=== PATIENT | male | born 1930 | race Caucasian/White ===

== ENCOUNTER → 2016-09-14 | Outpatient (CLI) | payer OTHER, BC | LOC: GIMAGING 14:28 | PROVIDERS: ATTEND Internal Medicine | DX: J44.9 Chronic obstructive pulmonary disease, unspecified (principal) | CPT/HCPCS: 71020-PO ==

== ENCOUNTER → 2016-12-08 | Outpatient (CLI) | payer OTHER, BC | LOC: BHFA 10:45 | PROVIDERS: ATTEND Internal Medicine Interventional Cardiology | DX: Z82.49 Family history of ischemic heart disease and other diseases of the circulatory system (principal) ==

== ENCOUNTER → 2017-07-22 | Outpatient (CLI) | payer OTHER, BC | LOC: FIMAGING 12:50 | PROVIDERS: ATTEND Internal Medicine Hematology & Oncology | DX: N63.20 Unspecified lump in the left breast, unspecified quadrant (principal) ==

== ENCOUNTER → 2017-09-27 | Outpatient (CLI) | payer OTHER, BC | LOC: BHFA 08:30 | PROVIDERS: ATTEND Internal Medicine Interventional Cardiology | DX: Z01.810 Encounter for preprocedural cardiovascular examination (principal); R94.31 Abnormal electrocardiogram [ECG] [EKG] | CPT/HCPCS: 78452; 93017; A9500; J2785 ==

== ENCOUNTER 2017-09-28 15:11 | Outpatient (CLI) | payer OTHER, BC ==
[2017-09-28] MEDS ORDERED: ACETAMINOPHEN 325 MG TAB ONE (15:38)
[2017-09-28] MEDS ORDERED: ACETAMINOPHEN 325 MG TAB PO ONE (15:45)
== END 2017-09-28 18:46 | disposition home or self-care (01) ==
LOC: FOBOP 15:11
PROVIDERS: ATTEND Internal Medicine Hematology & Oncology
PROC: 30233R1 Transfusion of Nonautologous Platelets into Peripheral Vein, Percutaneous Approach (ICD-10-PCS; principal; 2017-09-28)
DX: C4A.9 Merkel cell carcinoma, unspecified (principal)
CPT/HCPCS: 36430; J1200

== ENCOUNTER → 2018-03-11 | Outpatient (CLI) | payer OTHER, BC | LOC: FIMAGING 11:25 | PROVIDERS: ATTEND Orthopaedic Surgery | DX: Z01.818 Encounter for other preprocedural examination (principal); M17.12 Unilateral primary osteoarthritis, left knee ==

== ENCOUNTER 2018-03-25 13:00 | Inpatient (IN) | payer OTHER, BC ==
--- NOTE | 2018-04-01 05:48 | PDHPUP ---
History & Physical Update H&P update statement: This history and physical update is based on an assessment of the patient which was completed after admission or registration (within 24 hours), but prior to the surgery/procedure. H&P update: H&P reviewed & patient examined, no change in patient's condition since H&P completed
[2018-04-01] MEDS ORDERED: TRANEXAMIC ACID 3,000 MG in NS (SYRINGE) 50 ML IRR ONE (06:00)
[2018-04-01] MEDS ORDERED: ROPIVACAINE 0.2% 80 MG, EPINEPHrine 0.2 MG, KETOROLAC TROMETHAMINE 30 MG in SYRINGE 0 ML IU ONE (06:00)
--- NOTE | 2018-04-01 07:15 | PDGENHP ---
History and Physical History and Physical: Last amended by Freida Burnham PA-C on 03/18/2018 at 3:10pm View Changes: Patient Name TWILA DU (87yo, M) ID# [id number] Appt. Date/Time 03/17/2018 09: 45AM 1929 Service Dept. MAIN OFFICE Provider FREIDA BURNHAM PA-C Insurance Med Primary: [place] ([place]ARE) Insurance # : [id number] Med Secondary: [place] Insurance # : [id number] Policy/Group # : [id number] Prescription: ESI1 - Member is eligible. details Chief Complaint Left CBB_discuss left knee surgery discuss L TKA Patient's Care Team Primary Care Provider: MATHEUS WHEELER MD: [address] [place] [address], , Other: YONG ARENAS ([facility]): [address] [address], , Orthopedic Surgeon: LORE BURNHAM M.D. Patient's Pharmacies [facility] #[id number] ([facility]): [address] [facility] [id number], , Vitals 03/17/2018 09:49 am Ht: 5 ft 6 in Wt: 160 lbs BMI: 25.8 BP: 110/89 sitting L arm 124/68 sitting L arm Pulse: 88 bpm Allergies Reviewed Allergies NKDA Medications Reviewed Medications celecoxib 200 mg capsule take 2 capsules the night before surgery with dinner then one tab once daily with food for 3 weeks 03/17/18 prescribed Freida Burnham PA-C Eylea 2 mg/0.05 mL intravitreal solution for injection Inject 2 mg by intraocular route. 03/17/18 entered [facility] Fish Oil 03/17/18 entered Dahlia Anguiano lansoprazole 30 mg capsule,delayed release Take 1 capsule(s) every day by oral route for 90 days. 11/28/17 filled [facility] meloxicam 7.5 mg tablet 01/03/18 filled [facility] vitamins Vaccines None recorded. Problems Reviewed Problems Osteoarthritis of knee Shoulder joint pain Knee pain Family History Reviewed Family History Father - Heart disease (onset age: 55) ( age: 84) Social History Reviewed Social History Smoking Status: Former smoker Smoker () (Notes: less than 1PPW when smoked) Tobacco-years of use: 30 Occupation: retired Has smoked since age: 19 (Notes: to 50's) Chewing tobacco: none Alcohol intake: Occasional Alcohol-years of use: 63 Caffeine intake: Moderate Illicit drugs: no Exercise level: Occasional Sporting activities: walk Hand Dominance: Right Education: 4 Year College Live alone or with others?: with others (Notes: ) Surgical History Reviewed Surgical History Orthopaedic Surgery - hand Orthopaedic Surgery - back x2 Knee arthroscopy/surgery - left x2, right x1 Total knee arthroplasty - 09/20/2017 Orthopaedic Surgery - 1998 - right shoulder Past Medical History Reviewed Past Medical History Arthritis: Y Cancer: Y - prostate & skin Elevated Cholesterol: Y GERD/Reflux: Y Prostate Disease: Y Rheumatoid Arthritis: Y Screening None recorded. [facility] knee [facility] Reported by patient. Location of symptoms: Left knee Symptoms: Pain; Decreased ROM Severity: severe Duration: many years Onset: chronic Exacerbated by: Walking; Physical activity; performs with symptoms Alleviated by: activity modifications; NSAIDs; PT/OT; cortisone injection; viscosupplement injection Associated Symptoms: no numbness; swelling Previous Surgery: surgical procedure: (scope x2) Prior studies: radiographs Previous Injections: did not help Previous PT: did not help Work Related: no Notes: here to discuss risks of surgery with thrombocytopenia ROS ROS as noted in the HPI Physical Exam Patient is an 87-year-old male. Constitutional: General Appearance: healthy-appearing, NAD, and normal body habitus. Gait and Station: Appearance: ambulates with no assitive devices and antalgic gait. Cardiovascular System: Arterial Pulses Left: dorsalis pedis normal and posterior tibialis normal. Edema Left: no edema. Varicosities Left: no varicosities and capillary refill test normal. Lymph Nodes: Inspection/Palpation Left: no popliteal LAD. Knees: Inspection Left: no induration, warmth, or erythema; swelling and genu varum deformity; and normal axial alignment. Bony Palpation Left: no tenderness of the medial femoral condyle or the adductor tubercle and tenderness of the lateral wall trochlear groove, the medial wall trochlear groove, the medial joint line, and the lateral joint line. Soft Tissue Palpation Left: no tenderness of the lateral patellar retinaculum, the medial patellar retinaculum , the prepatellar bursa, the patellar tendon, the fat pad, the medial collateral ligament, the pes anserinus, the saphenous nerve, the iliotibial tract, the lateral collateral ligament, the biceps femoris tendon, or the gastrocnemius and tenderness of the popliteal fossa. Active Range of Motion Left : crepitus, flexion (110 deg.), extension (5 deg.), and pain at extreme limits of range. Stability Left: no laxity, subluxation, or ligamentous instability and anterior drawer sign negative and posterior drawer sign negative. Strength Left: no hamstring weakness or quadriceps weakness and flexion 5/5 and extension 5/5. Skin: Left Lower Extremity: normal. Neurologic: Sensation on the Left: T12 normal, L1 normal, L2 normal, L3 normal, and L4 normal. Psychiatric: Orientation: oriented to time, place, and person. Mood and Affect: normal mood and affect and active and alert. Heart Rate And Rhythm (normal) heart rate and rhythm. Lungs respirations unlabored. Assessment / Plan Left knee OA Previous xrays were reviewed today reveal severe DJD Discussed operative and non-operative interventions for diagnosis of knee arthritis with patient. Recommend Left TKA for treatment. Discussed risks and benefits of operative intervention including but not limited to bleeding, infection, need for further surgery, blood clots, blood clots going to the lungs and rare perioperative complications including stroke, heart attack and . Patient understands risks and wishes to proceed. Informed consent was obtained today Postoperative medications were written today including ASA per Dr. Arenas for VTE prophylaxis postop. Left TKAscheduled CBC WNL except for PLT 66K, followed by Dr. Arenas received PCP letter Patient was given a hard copy of [facility] Beneficiary Notification Letter at today' s appointment. 1. Acute postoperative pain G89.18: Other acute postprocedural pain 2. Prophylactic anticoagulation given Z76.89: Persons encountering health services in other specified circumstances celecoxib 200 mg capsule - take 2 capsules the night before surgery with dinner then one tab once daily with food for 3 weeks Qty: 23 capsule(s) Refills : 0 Pharmacy: [facility] #[id number] Note to Pharmacy: no refills, patient must contact provider first 3. Osteoarthritis of left knee joint M17.12: Unilateral primary osteoarthritis, left knee Return to Office Lore Brunham M.D. for Surgery 75 at Surgery on 04/01/2018 at 01:15 PM Freida Burnham PA-C for Surgery 75 at Surgery on 04/01/2018 at 01:15 PM Freida Burnham PA-C for Post Op Visit at MAIN OFFICE on 04/21/2018 at 01:30 PM Lore Burnham M.D. for Post Op Visit at MAIN OFFICE on 05/05/2018 at 01 :30 PM Lore Burnham M.D. for Post Op Visit at MAIN OFFICE on 06/16/2018 at 01 :30 PM Amendment Sign-Off Encounter signed-off by Freida Burnham PA-C, 03/18/2018. Encounter performed and documented by Freida Burnham PA-C Encounter reviewed & signed by Freida Burnham PA-C on 03/17/2018 at 10:15am Amendment closed by Freida Burnham PA-C on 03/18/2018 at 3:10pm There is not enough information to calculate an E&M code
[2018-04-01] MEDS ORDERED: TRANEXAMIC ACID 3,000 MG/50 ML BAG IRR ONE (11:20)
[2018-04-01] MEDS ORDERED: FAMOTIDINE 20 MG TAB PO ONE (11:26)
[2018-04-01] MEDS ORDERED: DEXAMETHASONE 4 MG/ML VIAL IVP ONE (11:26)
[2018-04-01] MEDS ORDERED: ceFAZolin 2 GM/DEXTROSE 100 ML IV ONE (11:26)
[2018-04-01] MEDS ORDERED: ACETAMINOPHEN 325 MG TAB PO ONE (11:26)
[2018-04-01] MEDS ORDERED: LR 1,000 ML IV ONE (11:27)
--- NOTE | 2018-04-01 11:45 | PDANEPAE ---
ANE History of Present Illness left TKA ANE Past Medical History - Cardiovascular History Hx Hypertension: No Hx Arrhythmias: No Hx Chest Pain: No Hx Coronary Artery / Peripheral Vascular Disease: No Hx CHF / Valvular Disease: No Hx Palpitations: No Cardiovascular History Comment: HIGH CHOL - Pulmonary History Hx COPD: No Hx Asthma/Reactive Airway Disease: No Hx Recent Upper Respiratory Infection: No Hx Oxygen in Use at Home: No Hx Sleep Apnea: No Sleep Apnea Screening Result - Last Documented: Negative Pulmonary History Comment: KIMBERLI TRIGGERS - Neurologic History Hx Cerebrovascular Accident: No Hx Seizures: No Hx Dementia: No Neurologic History Comment: SPINAL STENOSIS. HX OF SPINAL SURGERY. RIGHT LEG NUMBNESS HX - Endocrine History Hx Diabetes: No Obesity: no - Renal History Hx Renal Disorders: No Renal History Comment: URINARY FREQUENCY SINCE RADIOACTIVE SEEDS WERE PLACED - Liver History Hx Hepatic Disorders: No - Neurological & Psychiatric Hx Hx Neurological and Psychiatric Disorders: No - Cancer History Hx Cancer: Yes Cancer History Comment: PROSTATE CA WITH RADIOACTIVE SEEDS PLACED. BASAL CELL REMOVED - Congenital Disorder History Hx Congenital Disorders: No - GI History Hx Gastrointestinal Disorders: Yes Gastrointestinal History Comment: REFLUX. HX OF COLONOSCOPIES THAT WERE NEGATIVE - Other Health History Other Health History: bilat cataract surgery. MACULAR DEGENERATION. OSTEOARTHRITIS - Chronic Pain History Chronic Pain: No - Surgical History Prior Surgeries: LUMBAR LAMI L3-5 06/07/12. RIGHT ROTATOR CUFF REPAIR 05/24/10. LEFT AND RIGHT KNEE SCOPES. WISDOM TEETH. TONSILLECTOMY. TRIGGER FINGER SURGERY. RADIOACTIVE SEEDS PLACED IN PROSTATE. lymph node biopsy ANE Review of Systems Review of Systems: - Exercise capacity METS (RN): 4 METS ANE Patient History - Allergies Allergies/Adverse Reactions: almond Allergy (Verified 02/25/18 10:23) skin bloches, itching almond oil Allergy (Verified 02/25/18 10:23) skin bloches, itching - Home Medications Home medications: home medication list seen and reviewed Home Medications: Multivitamins [Multivitamin (OTC)] 1 each PO DAILY 05/30/12 [Last Taken 03/18/18 ] Herbals/Supplements -Info Only 1 ea PO DAILY 09/14/17 [Last Taken 03/18/18] Tamsulosin HCl [Flomax 0.4 MG (*)] 0.4 mg PO DAILY18 09/14/17 [Last Taken ] celeCOXIB [Celebrex (*)] 200 mg PO DAILY 09/28/17 [Last Taken 03/31/18] Lansoprazole [Prevacid] 30 mg PO DAILY 02/18/18 [Last Taken 03/31/18] diphenhydrAMINE [Benadryl 25 MG (*)] 25 mg PO TID 02/18/18 [Last Taken 03/31/18] - Smoking Hx Smoking Status: Former smoker - Family Anes Hx Family Hx Anesthesia Complications: NONE ANE Labs/Vital Signs - Vital Signs Height: 167.64 cm Weight: 76.204 kg ANE Physical Exam - Airway Neck exam: FROM Mallampati Score: Class 2 Mouth exam: normal dental/mouth exam - Pulmonary Pulmonary: no respiratory distress - Cardiovascular Cardiovascular: regular rate and rhythym - ASA Status ASA Status: II ANE Anesthesia Plan Anesthesia Plan: GA w LMA Regional Anesthesia: single shot NB, adductor canal FNB Urgent/Emergent Case: Ramírez layton completed preop but documented later for safe timely pt care
[2018-04-01] MEDS ORDERED: PROPOFOL 200 MG/20 ML VIAL ONE (12:39)
[2018-04-01] MEDS ORDERED: fentaNYL 100 MCG/2 ML INJ ONE ×3 (12:39→15:32)
[2018-04-01] MEDS ORDERED: LIDOCAINE 2% 5 ML SDV ONE (12:40)
[2018-04-01] MEDS ORDERED: ROPIVACAINE HCL 150 MG/30 ML INJ ONE (12:44)
[2018-04-01] MEDS ORDERED: DEXAMETHASONE 4 MG/ML VIAL ONE (13:53)
[2018-04-01] MEDS ORDERED: ONDANSETRON 4 MG/2 ML VIAL ONE (13:53)
[2018-04-01] MEDS ORDERED: DIPHENOXYLATE/ATROPINE LOMOTIL 1 TAB PO PRN (14:18)
[2018-04-01] MEDS ORDERED: ONDANSETRON 4 MG/2 ML VIAL IVP PRN ×2 (14:18→15:01)
[2018-04-01] MEDS ORDERED: TEMAZEPAM 15 MG CAP PO PRN (14:18)
[2018-04-01] MEDS ORDERED: ONDANSETRON DISINTEGRATING 4 MG TAB PO PRN (14:18)
[2018-04-01] MEDS ORDERED: POLYETHYLENE GLYCOL 3350 17 GM PKT PO PRN (14:18)
[2018-04-01] MEDS ORDERED: LACTULOSE 20 GM/30 ML UDCUP PO PRN (14:18)
[2018-04-01] MEDS ORDERED: diphenhydrAMINE 25 MG CAP PO PRN (14:18)
[2018-04-01] MEDS ORDERED: METOCLOPRAMIDE 10 MG/2 ML VIAL IVP PRN ×2 (14:18→15:01)
[2018-04-01] MEDS ORDERED: BISACODYL 10 MG SUPP PR PRN (14:18)
[2018-04-01] MEDS ORDERED: CYCLOBENZAPRINE 10 MG TAB PO PRN (14:18)
[2018-04-01] MEDS ORDERED: PROMETHAZINE HCL 25 MG/ML INJ IVP PRN ×2 (14:18→15:01)
[2018-04-01] MEDS ORDERED: MAGNESIUM HYDROXIDE 30 ML UDCUP PO PRN (14:18)
[2018-04-01] MEDS ORDERED: PROMETHAZINE HCL 25 MG SUPPR PR PRN (14:18)
[2018-04-01] MEDS ORDERED: LR 1,000 ML IV SCH (14:30)
--- NOTE | 2018-04-01 14:31 | POSTANESTH ---
Post Anesthetic Evaluation Cardiovascular Status: Normal, Stable Respiratory Status: Normal, Stable Level of Consciousness/Mental Status: Can Participate in Eval, Mildly Sleepy, Arousable Pain Control: Adequate, Prn Tx Ordered Nausea/Vomiting Control: Adequate, Prn Tx Ordered Complications Possibly Related to Anesthesia: None Noted
[2018-04-01] MEDS ORDERED: LR 500 ML IV PRN (15:01)
[2018-04-01] MEDS ORDERED: oxyCODONE IR 5 MG TAB PO PRN (15:01)
[2018-04-01] MEDS ORDERED: ALBUTEROL 3 ML DEYVIAL IH PRN (15:01)
[2018-04-01] MEDS ORDERED: NALOXONE HCL 0.4 MG/ML INJ IVP PRN (15:01)
[2018-04-01] MEDS ORDERED: ACETAMINOPHEN 500 MG TAB PO PRN (15:01)
[2018-04-01] MEDS ORDERED: HYDROCODONE/APAP 5/325 TAB PO PRN (15:01)
--- NOTE | 2018-04-01 15:20 | POSTOPPROG ---
Post Op Note Date of Operation: 04/01/18 Surgeon: Davon Carpenter Rotary Rock Drilling Machine Operator: kaylan carpenter PA-C Anesthesiologist: dr. banuelos Anesthesia: GET(General Endotracheal), Other (Specify) (adductor canal block) Pre-op Diagnosis: right knee OA Post-op Diagnosis: same Indication: right knee pain Procedure: R TKA robot assisted and sensor assisted Findings: severe knee OA and OCD lesion medial femoral condyle Inf/Abcess present in the surg proc area at time of surgery?: No EBL: 50-100
[2018-04-01] MEDS ORDERED: HYDROmorphONE/DILAUDID 2 MG/ML INJ ONE (15:32)
[2018-04-01] MEDS: fentaNYL 100 MCG/2 ML INJ IVP PRN ×2 (15:34→15:53)
[2018-04-01] MEDS: HYDROmorphONE/DILAUDID 2 MG/ML INJ IVP PRN ×2 (15:35→15:53)
--- NOTE | 2018-04-01 16:13 | PDMN ---
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
[2018-04-01] MEDS ORDERED: TAMSULOSIN HCL 0.4 MG CAP PO SCH (18:00)
[2018-04-01] MEDS: ACETAMINOPHEN 325 MG TAB PO SCH ×2 (18:19→23:44)
[2018-04-01] MEDS: FAMOTIDINE 20 MG TAB PO SCH (20:10)
[2018-04-01] MEDS: SENNOSIDES/DOCUSATE SODIUM TAB PO SCH (20:10)
[2018-04-01] MEDS: ASPIRIN 81 MG CHEWABLE TAB PO SCH (20:11)
[2018-04-01] MEDS: oxyCODONE IR 5 MG TAB PO PRN (21:03)
[2018-04-01] MEDS: ceFAZolin 2 GM/DEXTROSE 100 ML IV SCH (21:05)
[2018-04-02] MEDS: ceFAZolin 2 GM/DEXTROSE 100 ML IV SCH (05:28)
[2018-04-02] MEDS: oxyCODONE IR 5 MG TAB PO PRN ×2 (05:28→11:21)
[2018-04-02] MEDS: ACETAMINOPHEN 325 MG TAB PO SCH ×2 (05:29→11:49)
[2018-04-02] MEDS: ASPIRIN 81 MG CHEWABLE TAB PO SCH (08:30)
[2018-04-02] MEDS: FAMOTIDINE 20 MG TAB PO SCH (08:30)
[2018-04-02] MEDS: SENNOSIDES/DOCUSATE SODIUM TAB PO SCH (08:30)
[2018-04-02] MEDS ORDERED: LANSOPRAZOLE SUSP 3 MG/ML UDSYR (Peds) PO SCH (09:00)
[2018-04-02] MEDS ORDERED: PANTOPRAZOLE SODIUM 40 MG TAB PO SCH (09:00)
--- NOTE | 2018-04-02 11:03 | SOAPPROG ---
SOAP Progress Note Assessment/Plan: Assessment: Patient is doing well POD 1 s/p L TKA Pain management: pain is well controlled on oral pain meds. VTE ppx: recommend aspirin daily for 3 weeks, cont CHARLETTE and SCDs Anemia: level is expected initially postop. Asymptomatic. Continue to monitor thrombocytopenia: stable. preop 66K, today 60K. mild drop. D/c planning: patient has done much better than anticipated. BP is well controlled, pain is well controlled, PLT had only a slight decrease and knee has expected level of swelling postop POD 1. d/c to home today pending release from PT Plan: 04/02/18 11:01 Subjective: Miles is doing well today, denies SOB, chest pain and N/V. eager for discharge when safe to do so Objective: Vital Signs Temp Pulse Resp BP Pulse Ox 36.6 C 74 16 116/57 L 97 04/02/18 03:22 04/02/18 03:22 04/02/18 03:22 04/02/18 03:22 04/02/18 03:22 Laboratory Results 04/02/18 04:16 04/02/18 04:16 04/01/18 04/02/18 04/03/18 05:59 05:59 05:59 Intake Total 1530 1488 Output Total 635 Balance 895 1488 LLE: incision dressing is clean and dry, NVI, +pf/df ICD10 Worksheet Patient Problems: Problems Problem Status Onset Primary localized osteoarthritis of left knee Acute
[2018-04-02 11:56] VITALS: BP 115/63
--- NOTE | 2018-04-02 14:00 | GDS ---
ADMISSION DIAGNOSIS: Left knee osteoarthritis. DISCHARGE DIAGNOSIS: Left knee osteoarthritis. PROCEDURE: Left total knee arthroplasty, robotic-assisted VTE PROPHYLAXIS: Recommend aspirin 81 mg strength daily for 4 weeks. BRIEF DESCRIPTION OF HOSPITAL STAY: Patient was admitted for an elective joint arthroplasty. The pa tient tolerated the procedure well and has passed physical therapy. The patient was given appropriat e antibiotic prophylaxis and venous thromboembolism prophylaxis. The patient's pain was well control led on oral pain medication, patient was holding down food, and had urinated. Decision was made to d ischarge the patient. The patient was given post-operative prescriptions pre-operatively. PLAN: To schedule with Dr. Burnham's office 04/21 at 1:30. /[id number]/MODL
--- NOTE | 2018-04-03 12:56 | GOP ---
DATE OF OPERATION: 04/01/2018 SURGEON: Latesha Burnham MD RESEARCH PHYSICIAN: Freida Burnham PA-C. ANESTHESIA: Spinal PREOPERATIVE DIAGNOSIS: Left knee osteoarthritis. POSTOPERATIVE DIAGNOSIS: Left knee osteoarthritis. PROCEDURE PERFORMED: Left total knee arthroplasty with computer navigation, robotic assist. FINDINGS: Severe medial and patellofemoral osteoarthritis. ESTIMATED BLOOD LOSS: 30 cc. INDICATIONS: The patient is an 87-year-old male, with severe and progressive pain and deformity of t he left knee, unresponsive to conservative care. The risks and benefits of surgical intervention wer e explained in detail. DESCRIPTION OF PROCEDURE: The patient was brought to the operative room and placed on the table in t he supine position. Spinal anesthesia was induced without difficulty. A pneumatic tourniquet was ap plied about the left proximal thigh, and the leg was prepped and draped in a sterile fashion. The le g rain was applied. After exsanguination by elevation the tourniquet was inflated to 250 mmHg. Incision was made anterior medial from the tibial tuberosity to a point 2 cm proximal to the superior pole of the patella. Medial parapatellar arthrotomy was carried out from the superior pole of the pa tella and posteriorly in line with the fibers of the Type II VMO. The medial collateral ligament was elevated and the infrapatellar fat pad was resected. The patella was everted and the articular surface was excised. A 40 mm patellar button was placed. Attention was turned first to the distal aspect of the femur. After exposure of the femur, 2 half pi ns were placed for fixation of the femoral array. In a similar fashion, 2 pins were placed anteromed ial on the tibia for fixation of the tibial array. External land marking and registration of the hip center were performed without difficulty. Internal femoral and tibial registration was carried out without difficulty and the femoral and tibial checkpoints were placed and verified for accuracy. Attention was turned to the femur. The footprint for the size 5 femoral component was cut with the s aw using the [employer] robotic system and verified for accuracy against the CT based plan. In a similar fa shion, the saw was used to cut the footprint for the size 6 tibial component using the JR system and verified for accuracy against the CT based plan. The tibial articular surface was excised without d ifficulty, followed by the intercondylar box cut. The knee was extended and the remnants of the medial and lateral meniscus were excised. The posterio r capsule was injected with ropivacaine, epinephrine and Toradol. A size 6 tibial tray was positione d. Trial reduction was then carried out. There was excellent range of motion, alignment, and stabil ity using the 6 x 9 mm polyethylene. All trials were then removed. The joint was thoroughly irrigated and carefully dried. The press-fit components were implanted. The permanent 6 x 9 mm polyethylene was placed without difficulty. The tourniquet was deflated and all bleeders were coagulated. The wound was thoroughly irrigated and closed using interrupted sutures of 2-0 Vicryl for the joint capsule. The subcu was closed with 3-0 Vicryl and the skin with 4-0 Monocryl. Dermabond and Steri-Strips were applied followed by a compre ssive dressing. The patient was then moved from the operating room to the recovery room in good cond ition, having tolerated the procedure well. /[id number]/MODL
== END 2018-04-02 12:24 | disposition home or self-care (01) | DRG 470 ==
LOC: F3N 04-01 11:07 → OBSVTOIN 04-01 14:21 → F3N 04-01 16:44
PROVIDERS: ADMIT Orthopaedic Surgery; ATTEND Orthopaedic Surgery
DX: M17.12 Unilateral primary osteoarthritis, left knee (principal); D69.6 Thrombocytopenia, unspecified; E78.00 Pure hypercholesterolemia, unspecified; K21.9 Gastro-esophageal reflux disease without esophagitis; M06.9 Rheumatoid arthritis, unspecified; Z96.651 Presence of right artificial knee joint; Z87.891 Personal history of nicotine dependence
CPT/HCPCS: 97161-GP; G8978-GP-CI; G8979-GP-CI; G8980-GP-CI; J0171; J0690; J1100; J1170; J1885; J2405; J2704; J2795; J3010